=== PATIENT | female | born 1950 | race American Indian/Alaskan Native ===

== ENCOUNTER → 2025-02-23 | Outpatient (CLI) | payer MEDICARE, MEDICAID ==
[~2025-02-23] MED LIST: ACET1TAB55 PO; ALEN70TA82 PO; AMLO25TA PO; ATOR1TAB19 PO; CALC200T3 PO; CHLO25TA PO; CIPR250T3 PO; CLAR5TAB7 PO; D-101000 PO; ELIQ2.5T PO; GABA-1172 PO; HUMA100I5 SC; HYDR200T46 PO; IRON1TAB2 PO; LANTINJ4 SC; LEVO137T2 PO; LIDO15SO9 PO; LOKE10PA PO; LOKE5PAK PO; MAGICMW SSP; MAGN250T7 PO; METF-839 PO; METO1TAB7 PO; MIRA3350 PO; NITR100C2; TORS20TA2 PO; [UNRECOGNIZED DRUG - CODE] MC; [UNRECOGNIZED DRUG - CODE] XX; [UNRECOGNIZED DRUG - CODE] XX; [UNRECOGNIZED DRUG - SUPPLY]
== END ==
LOC: M PLARAD 11:14
PROVIDERS: ATTEND Internal Medicine Medical Oncology
DX: C18.4 Malignant neoplasm of transverse colon (principal)
CPT/HCPCS: 78815; A9552

== ENCOUNTER → 2025-06-02 | Outpatient (CLI) | payer MEDICARE, MEDICAID ==
[~2025-06-02] MED LIST changes: +ECOT81TA5 PO; +LEVO150T7; +LOPE1CAP5; +LOPE1CAP5 PO; +METO1TAB32 PO; +METO25TA; +NORT10CA2; +SENN-186 PO
== END ==
LOC: M WHC 14:24
DX: C18.9 Malignant neoplasm of colon, unspecified (principal)

== ENCOUNTER → 2025-06-17 | Outpatient (CLI) | payer MEDICARE, MEDICAID | LOC: M RAD 13:23 | PROVIDERS: ATTEND Specialist | DX: C18.9 Malignant neoplasm of colon, unspecified (principal); I51.7 Cardiomegaly; I70.0 Atherosclerosis of aorta; I25.10 Atherosclerotic heart disease of native coronary artery without angina pectoris; J98.11 Atelectasis; C78.7 Secondary malignant neoplasm of liver and intrahepatic bile duct ==